=== PATIENT | female | born 1950 | race Caucasian/White ===

== ENCOUNTER 2017-02-04 19:55 | Observation (INO) | payer MEDICARE, OTHER ==
[2017-02-04 20:25] LABS: Hematocrit 45.9 % (37.0-47.0); Hemoglobin 15.6 gm/dL (12.5-16.0); Mean Corpuscular Hemoglobin 30.2 pg (27-31); Mean Platelet Volume 9.2 fl (6.0-9.5); Neutrophil # 7.7 K/mm3 (1.3-6.0); Neutrophil % 57.9 % (42-75.0); Platelet Count 311 K/mm3 (150-450); Red Blood Count 5.16 M/mm3 (4.2-5.4); Red Cell Distribution Width 12.2 % (11.5-14.0); White Blood Count 13.3 K/mm3 (4.0-10.5)
--- OUTSIDE RECORDS SUMMARY | 2017-02-04 20:31 | XMS REPORT | Continuity of Care Document ---
:1950 Author Organization [facility] ([facility]) Address [address] [place] [address] Phone [phone] Care Team Providers Name Role Phone Maria G Garcia Primary Care Provider [phone] Source Comments This disclosure is being made pursuant to the Care Everywhere program, applicable federal and state laws, and may not contain all informaitonavailable regarding this patient.[facility] ([facility]) Active Allergies and Adverse Reactions Not on File Current Medications Not on file Active Problems Not on file Most Recent Encounters Date Type Specialty Providers Description 01/31/2017 Orders/Notes Srg Vascular Tim Ruffin GNP Dx: Bilateral carotid artery stenosis (Primary Dx) Social History Tobacco Use Types Packs/Day Years Used Date Never Assessed Plan of Care Date Type Specialty Providers Description 02/06/2017 Hospital Encounter Radiology Chief Comp: Patient Reported Reason For Visit 02/06/2017 Hospital Encounter [facility] V[facility], Chief Comp: Patient MD Lidia Reported Reason For [address] [place] [address] [phone] (Fax) 02/06/2017 Appointment Srg Vascular [facility], Dx: Occlusion and MD Lidia stenosis of carotid [address] artery without [place], [place] mention of cerebral [id number] infarction (Primary [id number] Dx) [phone] (Fax) Health Maintenance Due Date Last Done Comments HCV Screening 1950 Hepatitis B Vaccine (1 of 3 - Primary Series) 1950 Tdap Vaccine 1961 Lipid Disorder Screening 1968 Td Vaccine 1968 Mammogram 1990 Colonoscopy 05/25/2000 Zoster Vaccine 2010 Osteoporosis Screening (DXA Bone Density) 2015 Pneumococcal Vaccine (1 of 2 - PCV13) 2015 Influenza Vaccine: Seasonal (Season Ended) 2017 Results from Last 3 Months Not on file
[2017-02-04 20:48] LABS: Albumin * 3.5 gm/dl (3.4-5.0); Anion Gap 12.6 mmol/L (6.8-13.8); BUN/Creatinine Ratio 23.6 (9.0-21.6); Bilirubin, Total 0.4 mg/dL (0.0-1.1); Ca. Corrected For Albumin 9.9 mg/dL (8.4-10.2); Calcium * 9.8 mg/dL (7.9-10.9); Potassium 3.6 mmol/L (3.4-4.6)
--- NOTE | 2017-02-04 21:43 | ERNOTE ---
Medical Problem HPI - General Chief Complaint: General Assessment Time Seen by Provider: 02/04/17 20:12 Source: patient, family Exam Limitations: no limitations - Immun/Allergies/Home Medications Allergies/Adverse Reactions: Allergies shrimp Allergy (Verified 02/04/17 20:22) Home Medications: HOME MEDICATIONS Aspirin 81 mg PO 02/04/17 [Last Taken Unknown] Atorvastatin Calcium [Lipitor] 40 mg PO DAILY 02/04/17 [Last Taken Unknown] Lisinopril/Hydrochlorothiazide [Zestoretic 10-12.5 mg Tablet] 1 each PO DAILY [Last Taken Unknown] [place]-3 Fatty Acids/Fish Oil [Fish Oil 1,000 mg Capsule] 1 each PO DAILY [Last Taken Unknown] Vitamin B12 02/04/17 [Last Taken Unknown] Vitamin D3 02/04/17 [Last Taken Unknown] Zostavax Vial 02/04/17 [Last Taken Unknown] - History of Present History Narrative: pt here for one episode of tipping to the left side at dinner approx 30 minutes prior to presentation to ED. No LOC, no fall. Son in law caught the patient. Pt states that she also feels very weak all over and hasn't felt well all day. Denies any headache or dizziness right now. Review of Systems - Review of Systems Constitutional: Present: weakness, fatigue, malaise EYE: Present: no symptoms reported ENT: Present: no symptoms reported Respiratory: Present: no symptoms reported Cardiology: Present: no symptoms reported Gastrointestinal/Abdominal: Present: no symptoms reported Genitourinary: Present: no symptoms reported Musculoskeletal: Present: other - weak telesales advisor on left side but pt states it is not new Skin: Present: no symptoms reported Neurological: Present: weakness, other - no focal neurological deficits. normal gait, and speech however she is approximately one inch off when she tries to touch my index finger with her right hand. Pt states and daughters agree that this is new. - Patient's Past Medical History Patient History - Medical: Anemia Patient History - Cardiac/Respiratory: Hypertension, Hyperlipidemia Patient History - Cancer: No Hx of Cancer Patient History - Other: None - Social History Living Situations: home Abuse History: No History of abuse Psych History: No pertinent hx Alcohol Use: none Drug Use: none Physical Exam - Physical Exam General Appearance: Present: wd/wn, alert, no apparent distress Ears, Nose, Throat: Present: normal ENT inspection, normal pharynx Respiratory: Present: no respiratory distress, normal breath sounds, no accessory muscle use, chest nontender, lungs clear Gastrointestinal/Abdominal: Present: normal bowel sounds, nontender, nondistended, soft, no organomegaly Extremity Exam: Present: normal inspection, non-tender, normal range of motion, no edema Neurological Exam: Present: alert, oriented, normal mood/affect, no motor/ sensory deficits, other - finger to nose/finger is off when pt uses right hand ED Progress - Results and Orders Patient's Lab Results:: I have reviewed the patient's lab results. - Vital Signs Patient's Vital Signs:: I have reviewed the patient's vital signs. Vital Signs: Vital Signs 02/04/17 02/04/17 19:56 20:47 Temperature 36.9 C Pulse Rate 95 89 Respiratory 16 17 Rate Blood Pressure 185/72 158/51 O2 Sat by Pulse 100 95 Oximetry - Progress/Reassessment Chief Complaint: General Assessment Plan - Plan Plan: This patient feels weak and her dexterity is not "normal" as reported by her. she had an episode of tipping over to the left but that and her balance is now gone and within normal limits. Ct of head is negative, WBC is 13. No focus of infection has been found. I think pt needs to be admitted for observation and hospitalist was called for admit Departure - Departure Clinical Impression: TIA (transient ischemic attack) Qualifiers: Transient cerebral ischemia type: other Qualified Code(s): G45.8 - Other transient cerebral ischemic attacks and related syndromes Disposition: [facility] Condition: Stable Referrals: Maria G Garcia FNP [Primary Care Provider] -
--- OUTSIDE RECORDS SUMMARY | 2017-02-04 21:49 | XMS REPORT | Continuity of Care Document ---
:1950 Author Organization [facility] ([facility]) Address [address] [place] [address] Phone [phone] Care Team Providers Name Role Phone Maria G Garcia Primary Care Provider [phone] Source Comments This disclosure is being made pursuant to the Care Everywhere program, applicable federal and state laws, and may not contain all informaitonavailable regarding this patient.[facility] ([facility]) Active Allergies and Adverse Reactions Not on [...] Reported Reason For [address] [place] [address] [phone] (Fax) 02/06/2017 Appointment Srg Vascular [facility], Dx: Occlusion and MD Lidia stenosis of carotid [address] artery without [place], [place] mention of cerebral [address] infarction (Primary [phone] Dx) [phone] (Fax) Health Maintenance Due Date Last Done [...]
[2017-02-04 22:33] LABS: Urine Bilirubin Negative (NEGATIVE); Urine Ketone Negative (NEGATIVE); Urine Nitrite Negative (NEGATIVE); Urine Protein Negative (NEGATIVE); Urine Specific Gravity 1.025 SP.GR. (1.005-1.010); Urine Urobilinogen Normal (NORMAL)
--- NOTE | 2017-02-04 22:37 | HP ---
Chief Complaint - Chief Complaint Date of Service: 02/04/17 Time of Service: 22:12 Chief Complaint: " Weakness". Source of HPI- Pt; reliable, ER provider report. History of Present Illness: Ms. Frye is a 66-yr-old [place] pt of [facility] with a PMH of: Athritis, Cellulitis, HTN & HLD. History is mostly provided by the pt's two sisters. They report that while pt was eating a dessert tonight, she suddenly became weak & tilted to the LT side. There was no loss of consciousness or fall. Pt states that she felt lightheaded during the episode. The sisters deny the associated symptoms of: difficulty with speech/slurry speech, facial drooping, numbness, one sided weakness or changes in vision. They noted that she kept missing to apply cap on the water bottle today. Pt states she has prior injury to the Left Hand since childhood and it has always been weak. Off note, saw her PCP on 01/25 with complaints of Lt hand numbness, tremors on RT hand and blurry vision which lasted 30 minutes. She was found to have a LT carotid bruit. She had a follow-up for a Carotid Ultrasound on 01/30. The imaging showed complete occlusion of the RT common Carotid & RT internal Carotid Arteries, and near total occlusion of the LT internal and LT External Carotid Arteries. Her PCP made a referral to the Vascular Surgeon and pt has an upcoming appointment on 02/06 at 1.00pm. She is on Aspirin and Statin therapy. She still smokes cigarettes and is a 40 yr 1 PPD smoker. During evaluation at the ED, the Hematology and Chemistry labs were mostly unremarkable. A Head CT was obtained and there was no obvious CVA/infarcts. UA was negative of infection. The EKG and Troponin was normal. Pt will be admitted under observation status due to symptoms of TIA which also has a risk to evolve to an Acute Stroke - Patient's Past Medical History Patient History - Medical: Anemia, Arthritis, Other - Cellulitis. Patient History - Cardiac/Respiratory: Hypertension, Hyperlipidemia Patient History - Cancer: No Hx of Cancer Patient History - Surgical Procedures: Total Knee Replacement - LEFT, Other - oophorectomy Patient History - Other: None - Family History Father Family History - Medical: , Diabetes Type 2 Family History - Cardiac/Respiratory: CVA/Stroke, Hypertension Mother Family History - Medical: Alzheimer's Disease, Arthritis - Social History Living Situations: home Abuse History: No History of abuse Psych History: No pertinent hx Alcohol Use: none Drug Use: none - Immunizations Immunizations Up to Date: Yes Hx Pneumococcal Vaccination: Yes History of Influenza Vaccine: Yes Review Of Systems (GEN) - Review of Systems Generalized/Overall Review: Present: Weakness. Absent: Chills, Fever, Malaise EENTM: Absent: Eye Pain, Blurred Vision Allergies/Adverse Reactions: Allergies Allergy/AdvReac Type Severity Reaction Status Date / Time shrimp Allergy Verified 02/04/17 20:22 Home Medications: HOME MEDICATIONS Aspirin 81 mg PO DAILY 02/04/17 [Last Taken 02/04/17 12:00] Atorvastatin Calcium [Lipitor] 40 mg PO DAILY 02/04/17 [Last Taken 02/04/17 12: 00] Lisinopril/Hydrochlorothiazide [Zestoretic 10-12.5 mg Tablet] 1 each PO DAILY [Last Taken 02/04/17 12:00] [place]-3 Fatty Acids/Fish Oil [Fish Oil 1,000 mg Capsule] 1 each PO DAILY [Last Taken 01/27/17] Acetaminophen/Diphenhydramine [Tylenol Pm Ex-Strength Caplet] 2 each PO HS PRN 02/05/17 [Last Taken Unknown] Cholecalciferol (Vitamin D3) [Vitamin D3] 1,000 unit PO DAILY 02/05/17 [Last Taken Unknown] Cyanocobalamin (Vitamin B-12) [Vitamin B-12] 500 mcg PO DAILY 02/05/17 [Last Taken Unknown] Folic Acid 0.4 mg PO DAILY 02/05/17 [Last Taken Unknown] Multivitamin [Multivitamins] 1 each PO DAILY 02/05/17 [Last Taken Unknown] Exam - Exam Vital Signs: Vital Signs - Last Taken Temp 36.9 C 02/04/17 19:56 Pulse 89 02/04/17 20:47 Resp 17 02/04/17 20:47 BP 158/51 02/04/17 20:47 Pulse Ox 95 02/04/17 20:47 Constitutional: Present: Alert, Oriented x3, No distress ENT Exam: Present: normal ENT inspection, hearing grossly normal. Absent: hard of hearing, nasal congestion Eye Exam: bilateral eye: normal inspection, PERRL Neck: Present: full range of motion, supple, normal inspection Back Exam: Present: normal inspection, no CVA tenderness Breasts: Present: Exam deferred Respiratory: Present: lungs clear, no accessory muscle use Cardiovascular/Chest: Present: normal peripheral pulses, regular rate, rhythm, no chest tenderness, no murmur Abdomen: Present: Normal bowel sounds, soft, nontender /Rectal: Present: Exam deferred Extremity: Present: normal range of motion, non-tender, normal inspection, no pedal edema Skin Exam: Present: no cyanosis, pallor Neurologic: Present: alert, normal mood/affect, oriented x 3, motor weakness - Muscle Stregth on RUE 4/5 & LUE 3/5.. Absent: abnormal gait, aphasia, facial droop Appearance: Present: appropriate appearance, appropriate insight Eye contact: Present: cooperative, good eye contact, normal speech Thoughts: Present: normal thought pattern, no apparent hallucination Diagnostic Studies: Laboratory Results WBC 13.3 K/mm3 (4.0-10.5) H 02/04/17 20:20 RBC 5.16 M/mm3 (4.2-5.4) 02/04/17 20:20 Hgb 15.6 gm/dL (12.5-16.0) 02/04/17 20:20 Hct 45.9 % (37.0-47.0) 02/04/17 20:20 MCV 89.0 fl (78-100) 02/04/17 20:20 MCH 30.2 pg (27-31) 02/04/17 20:20 MCHC 34.0 g/dl (32-36) 02/04/17 20:20 RDW 12.2 % (11.5-14.0) 02/04/17 20:20 Plt Count 311 K/mm3 (150-450) 02/04/17 20:20 MPV 9.2 fl (6.0-9.5) 02/04/17 20:20 Immature Gran % (Auto) 0.40 % (0.001-0.429) 02/04/17 20:20 Immature Gran # (Auto) 0.05 K/mm3 (0.000-0.0310) H 02/04/17 20:20 Neutrophils % 57.9 % (42-75.0) 02/04/17 20:20 Lymphocytes % 33.5 % (20-51) 02/04/17 20:20 Monocytes % 5.4 % (0.0-9) 02/04/17 20:20 Eosinophils % 2.3 % (0.0-3.0) 02/04/17 20:20 Basophils % 0.5 % (0.0-1.0) 02/04/17 20:20 Nucleated RBC % 0.0 k/mm3 (0-1) 02/04/17 20:20 Neutrophils # 7.7 K/mm3 (1.3-6.0) H 02/04/17 20:20 Lymphocytes # 4.4 k/mm3 (1.5-3.5) H 02/04/17 20:20 Monocytes # 0.7 k/mm3 (0.0-1.0) 02/04/17 20:20 Eosinophils # 0.3 k/mm3 (0.0-0.7) 02/04/17 20:20 Absolute Basophils 0.1 k/mm3 (0.0-0.1) 02/04/17 20:20 Sodium 140 mmol/L (132-142) 02/04/17 20:20 Plasma Sodium 140 mmol/L (130-142) 02/04/17 20:20 Potassium 3.6 mmol/L (3.4-4.6) 02/04/17 20:20 Chloride 101 mmol/L (97-106) 02/04/17 20:20 Carbon Dioxide 30.0 mmol/L (24-32.6) 02/04/17 20:20 Anion Gap 12.6 mmol/L (6.8-13.8) 02/04/17 20:20 BUN 21 mg/dL (3-23) 02/04/17 20:20 Creatinine 0.89 mg/dL (0.4-1.4) 02/04/17 20:20 Est GFR (Non-Af Amer) 67 mL/min (60-130) 02/04/17 20:20 BUN/Creatinine Ratio 23.6 (9.0-21.6) H 02/04/17 20:20 Random Glucose 129 mg/dL (70-110) H 02/04/17 20:20 Calcium 9.8 mg/dL (7.9-10.9) 02/04/17 20:20 Calcium Adj for Albumin 9.9 mg/dL (8.4-10.2) 02/04/17 20:20 Total Bilirubin 0.4 mg/dL (0.0-1.1) 02/04/17 20:20 AST 22 U/L (0-48) 02/04/17 20:20 ALT 31 U/L (19-67) 02/04/17 20:20 Alkaline Phosphatase 80 U/L (50-170) 02/04/17 20:20 Total Protein 8.0 gm/dL (6.2-8.2) 02/04/17 20:20 Albumin 3.5 gm/dl (3.4-5.0) 02/04/17 20:20 Assessment/Plan - Assessment/Plan (1) TIA (transient ischemic attack) Assessment: Pt /family reported abrupt weakness & loss of balance. No vision, speech, & contralateral sensory or motor dysfunction. The head CT was negative for an infarct. The EKG showed no arrhythmia involved and the Troponin was negative.Her TIA symptoms are likely related to Carotid Atherosclerosis vs cerebral embolism & cardioembolic. Will admit and place telemetry monitoring and perform neuro checks to ensure TIA does not progress to an Acute stroke. She is on Statin and Aspirin but will stop Aspirin and start Plavix 75mg daily due to carotid artery stenosis. Problem: Acute Qualifiers: Transient cerebral ischemia type: other Qualified Code(s): G45.8 - Other transient cerebral ischemic attacks and related syndromes (2) Carotid artery stenosis Assessment: Was on Aspirin and Statin therapy which was started recently12/26. May need carotid revasculization within 2 weeks of TIA. She has an appt with the Vascular surgeon this Tuesday 02/06 at 1.00pm. Will plan to Discharge tomorrow if no acute events overnight so that she can make it to that appt. Problem: Acute (3) HTN (hypertension) Assessment: Stable -On Lisinopril Problem: Chronic Qualifiers: Hypertension type: essential hypertension Qualified Code(s): I10 - Essential (primary) hypertension (4) HLD (hyperlipidemia) Assessment: Stable- On Zocor. Problem: Chronic
[2017-02-04 22:44] LABS: Urine Appearance Clear; Urine Bacteria TRACE; Urine Blood 10 /ul (NEGATIVE); Urine Color Yellow; Urine RBC None Seen /hpf (0-5); Urine WBC None Seen /hpf (0-5)
[2017-02-04 22:58] VITALS: BP 157/76
--- NOTE | 2017-02-05 07:11 | DS ---
(1) TIA (transient ischemic attack) Problem: Acute Qualifiers: Transient cerebral ischemia type: other Qualified Code(s): G45.8 - Other transient cerebral ischemic attacks and related syndromes (2) Carotid artery stenosis Problem: Acute (3) HTN (hypertension) Problem: Chronic Qualifiers: Hypertension type: essential hypertension Qualified Code(s): I10 - Essential (primary) hypertension (4) HLD (hyperlipidemia) Problem: Chronic Description of Stay: Admission HPI Ms. Frye is a 66-yr-old [place] pt of [facility] with a PMH of: Athritis, Cellulitis, HTN & HLD. History is mostly provided by the pt's two sisters. They report that while pt was eating a dessert tonight, she suddenly became weak & tilted to the LT side. There was no loss of consciousness or fall. Pt states that she felt lightheaded during the episode. The sisters deny the associated symptoms of: difficulty with speech/slurry speech, facial drooping, numbness, one sided weakness or changes in vision. They noted that she kept missing to apply cap on the water bottle today. Pt states she has prior injury to the Left Hand since childhood and it has always been weak. Off note, saw her PCP on 01/25 with complaints of Lt hand numbness, tremors on RT hand and blurry vision which lasted 30 minutes. She was found to have a LT carotid bruit. She had a follow-up for a Carotid Ultrasound on 01/30. The imaging showed complete occlusion of the RT common Carotid & RT internal Carotid Arteries, and near total occlusion of the LT internal and LT External Carotid Arteries. Her PCP made a referral to the Vascular Surgeon and pt has an upcoming appointment on 02/06 at 1.00pm. She is on Aspirin and Statin therapy. She still smokes cigarettes and is a 40 yr 1 PPD smoker. During evaluation at the ED, the Hematology and Chemistry labs were mostly unremarkable. A Head CT was obtained and there was no obvious CVA/infarcts. UA was negative of infection. The EKG and Troponin was normal. Pt will be admitted under observation status due to symptoms of TIA which also has a risk to evolve to an Acute Stroke. Hospital course Problem. 1.) TIA. On admission, pt /family reported abrupt weakness & loss of balance. No vision, speech, & contralateral sensory or motor dysfunction. The head CT was negative for an infarct. The EKG showed no arrhythmia involved and the Troponin was negative. Her TIA symptoms were likely related to Carotid Atherosclerosis vs cerebral embolism & cardioembolic. She was admitted under observation for remote telemetry monitoring and for neuro checks due to the risk of TIA that can progress to Acute Stroke. During the overnight stay, the were no acute events involving unilateral weakness, speech, vision and facial dropping . She was on Aspirin, Statin and Micky inhibitor prior to hospitalization. Her Aspirin was stopped and she was started on Plavix given the just recently discovered Carotid Artery Stenosis and presentation of TIA symptoms. She was in a stable condition to be discharged. She was strongly advised to keep the appointment with the Vascular Surgeon in [place] on 02/06. Procedures Performed: none Discharge Disposition: Home self care Disposition: Home self-care Condition: Good Discharge Activity: Activity as tolerated Discharge Diet: General/regular food, Low salt Referrals: Maria G Garcia FNP [Primary Care Provider] - Problem Oriented Discharge Instructions to Patient/Family: Smoking Cessation, Tips for Success, [id number], Carotid Artery Disease, Transient Ischemic Attack, [id number] Additional Patient Instructions (free text): Follow-up with your Primary Care Doctor next week. Please keep your appointment with the Vascular Surgeon tomorrow at the [facility]. Prescriptions (Any new or edited meds): Clopidogrel Bisulfate [Plavix] 75 mg PO DAILY #60 tablet Complete Home Medications List: Complete Home Medication List: Atorvastatin Calcium [Lipitor] 40 mg PO DAILY 02/04/17 Lisinopril/Hydrochlorothiazide [Zestoretic 10-12.5 mg Tablet] 1 each PO DAILY [place]-3 Fatty Acids/Fish Oil [Fish Oil 1,000 mg Capsule] 1 each PO DAILY Acetaminophen/Diphenhydramine [Tylenol Pm Ex-Strength Caplet] 2 each PO HS PRN 02/05/17 Cholecalciferol (Vitamin D3) [Vitamin D3] 1,000 unit PO DAILY 02/05/17 Clopidogrel Bisulfate [Plavix] 75 mg PO DAILY #60 tablet 02/05/17 Cyanocobalamin (Vitamin B-12) [Vitamin B-12] 500 mcg PO DAILY 02/05/17 Folic Acid 0.4 mg PO DAILY 02/05/17 Multivitamin [Multivitamins] 1 each PO DAILY 02/05/17
[2017-02-05] MEDS ORDERED: HYDROCHLOROTHIAZIDE 12.5 MG CAPSULE PO SCH (09:00)
[2017-02-05] MEDS ORDERED: ATORVASTATIN CALCIUM 40 MG TABLET PO SCH (09:00)
[2017-02-05] MEDS ORDERED: CYANOCOBALAMIN 1,000 MCG TABLET PO SCH (09:00)
[2017-02-05] MEDS ORDERED: LISINOPRIL 10 MG TABLET PO SCH (09:00)
[2017-02-05] MEDS ORDERED: ROSUVASTATIN CALCIUM 10 MG TABLET PO SCH (09:00)
[2017-02-05] MEDS ORDERED: CLOPIDOGREL BISULFATE 75 MG TABLET PO SCH (09:00)
[2017-02-05] MEDS ORDERED: CHOLECALCIFEROL 1,000 UNIT CAPSULE PO SCH (09:00)
[2017-02-05] MEDS ORDERED: ASPIRIN 81 MG TAB.CHEW PO SCH (09:00)
== END 2017-02-05 08:39 | disposition home or self-care (01) ==
LOC: ER 19:55 → MS 21:39
PROVIDERS: ADMIT Nurse Practitioner; ATTEND Internal Medicine
DX: G45.8 Other transient cerebral ischemic attacks and related syndromes (principal); I65.23 Occlusion and stenosis of bilateral carotid arteries; I10 Essential (primary) hypertension; Z72.0 Tobacco use; E78.5 Hyperlipidemia, unspecified
CPT/HCPCS: 36415; 70450; 80053; 81001; 84484; 85025; 93005; 99284; G0378

== ENCOUNTER 2017-02-16 20:20 | Emergency (ER) | payer MEDICARE, OTHER ==
--- OUTSIDE RECORDS SUMMARY | 2017-02-16 21:01 | XMS REPORT | Continuity of Care Document ---
:1950 Author Organization [facility] ([facility]) Address [address] [place] [address] Phone [phone] Care Team Providers Name Role Phone Maria G Garcia Primary Care Provider [phone] Source Comments This disclosure is being made pursuant to the Care Everywhere program, applicable federal and state laws, and may not contain all informaitonavailable regarding this patient.[facility] ([facility]) Active Allergies and Adverse Reactions Allergen Noted Date Severity Reactions Comments Shellfish Containing Products 02/06/2017 Urticaria (Hives) Current Medications Prescription Sig. Disp. Refills Start Date End Date Status atorvastatin 40 mg Take 40 mg by 12/26/2016 Active tablet mouth daily. lisinopril-hydrochlor Take 1 tablet 01/18/2017 Active othiazide 10-12.5 mg by mouth per tablet daily. clopidogrel 75 mg Take 75 mg by 02/05/2017 Active tablet mouth daily. multivitamin tablet Take 1 tablet Active by mouth daily. cholecalciferol Take 1,000 Active (VITAMIN D3) 1,000 Units by unit capsule mouth daily. aspirin 81 mg EC Take 81 mg by Active tablet mouth daily. cyanocobalamin Take 1 tablet Active (VITAMIN B-12) PO by mouth daily. DOCOSAHEXANOIC Take 1 Active ACID/EPA (FISH OIL capsule by PO) mouth daily. docusate 100 mg Take 1 60 capsule 0 02/16/2017 Active capsule capsule (100 mg total) by mouth 2 times daily. HYDROcodone-acetamino Take 1-2 40 tablet 0 02/16/2017 Active phen 5-325 mg per tablets by tablet mouth every 4 hours as needed. vitamin B complex Take 1 tablet Discontinued tablet by mouth 7 daily. omega-3 fatty acids 1 Take 2 g by Discontinued gram capsule mouth daily. 7 cyanocobalamin Take 1,200 Discontinued (VITAMIN B-12) PO mcg by mouth 7 daily. HYDROcodone-acetamino Take 1-2 40 tablet 0 02/16/2017 Discontinued phen 5-325 mg per tablets by 7 tablet mouth every 4 hours as needed. Active Problems Problem Noted Date PONV (postoperative nausea and vomiting) 02/15/2017 Occlusion and stenosis of carotid artery without mention of cerebral 2016 infarction Tobacco use disorder 02/08/2017 Essential hypertension 02/08/2017 Carotid stenosis, left 02/08/2017 Carotid occlusion, right 02/08/2017 Stroke, large vessel 02/08/2017 Peripheral vascular disease 02/06/2017 Overview: Vascular History: Risk Factors: history of smoking and hypercholesterolemia Vascular Procedures: none Cardiac History: None Statin Therapy: Yes Antithrombotic Therapy: clopidogrel Indication: started February 04, 2017 possible TIA Carotid Screening: ~ February 06, 2017 Right ICA 100%; Left ICA 80-99%, Verts antegrade Aortic Screening:No aneurysm on duplex February 06, 2017 Most Recent Encounters Date Type Specialty Providers Description 02/16/2017 Hospital Encounter Kimberly, Chief Comp: Patient Vascular MD Lidia Reported Reason For Visit 02/16/2017 Hospital Encounter Kimberly Dx: Postoperative Vascular MD Lidia carotid endarterectomy mandie Osuna Timothy F, MD encounter for 02/16/2017 Telephone Patient Services Yun Harris Chief Comp: Post-op Kyle RN Problem 02/15/2017 Hospital Encounter Neurology Vane Dang, Chief Comp: Patient MD Reported Reason For Axel, Visit MD Lidia 02/15/2017 - Hospital Encounter Intensive Care Axel Dx: Occlusion and 02/16/2017 Inpatient - Adult MD Lidia stenosis of carotid artery without mention of cerebral infarction (Primary Dx) 02/15/2017 Surgery General Surgery Axel, Left carotid MD Lidia endarterectomy 02/10/2017 Telephone Heart and Radha Ruffin Chief Comp: Results Vascular RN 02/07/2017 Office Visit Escobar Mason: Preop Vascular Li Payne MD cardiovascular exam (Primary Dx) 02/07/2017 Anesthesia Event General Surgery Chanel Johnson RN 02/06/2017 Hospital Encounter Radiology Irena, Dx: Occlusion and MD Lorenzo stenosis of carotid artery without mention of cerebral infarction 02/06/2017 Office Visit Neurology Love Ham Dx: Cerebrovascular MD Kyle accident (CVA), unspecified mechanism (Primary Dx) 02/06/2017 Hospital Encounter Heart and Axel Chief Comp: Patient Vascular MD Lidia Reported Reason For Visit 02/06/2017 Hospital Encounter Heart and Axel Chief Comp: Patient Vascular MD Lidia Reported Reason For Visit 02/06/2017 Hospital Encounter Heart and Axel Chief Comp: Patient Vascular MD Lidia Reported Reason For Visit 02/06/2017 Hospital Encounter Heart and Axel Chief Comp: Patient Vascular MD Lidia Reported Reason For Visit 02/06/2017 Hospital Encounter Heart and Axel Chief Comp: Patient Vascular MD Lidia Reported Reason For Visit 02/06/2017 Office Visit Srg Vascular Axel, Dx: Occlusion and MD Lidia stenosis of carotid artery without mention of cerebral infarction (Primary Dx) 02/06/2017 Hospital Encounter Radiology Adolfo Jennings Dx: Encounter for MD Erica preprocedural laboratory examination (Primary Dx) 02/06/2017 Telephone Neurology Love Ham Chief Comp: Results MD Kyle 01/31/2017 Orders/Notes Srg Vascular Tim Ruffin GNP Dx: Bilateral carotid artery stenosis (Primary Dx) Social History Tobacco Use Types Packs/Day Years Used Date Current Every Day Smoker 0.5 40 Smokeless Tobacco: Never Used Tobacco Cessation:Counseling Given: Yes Comments: Alcohol Use Drinks/Week oz/Week Comments No Last Filed Vital Signs Vital Sign Reading Time Taken Blood Pressure 137/56 02/16/2017 11:56 AM CDT Pulse 86 02/15/2017 9:25 AM CDT Temperature 36 C (96.8 F) 02/16/2017 12:00 PM CDT Respiratory Rate 18 02/15/2017 9:25 AM CDT Height 1.702 m (5' 7") 02/15/2017 5:30 PM CDT Weight 73.2 kg (161 lb 6 oz) 02/15/2017 5:30 PM CDT Body Mass Index 25.27 02/15/2017 5:30 PM CDT Oxygen Saturation 91% 02/16/2017 12:00 PM CDT Plan of Care Date Type Specialty Providers Description 03/20/2017 Appointment Heart and Vascular Default, Other Billg Chief Comp: Patient - Defo Reported Reason For [address] [place] [address] [phone] (Fax) 03/20/2017 Appointment Srg Vascular Default, Other Billg - Defo [address] [place] [address] [phone] (Fax) Chief Comp: Patient Lidia Reyna MD [address] [place] [address] [phone] (Fax) Reported Reason For Visit Health Maintenance Due Date Last Done Comments HCV Screening 1950 Hepatitis B Vaccine (1 of 3 - Primary Series) 1950 Tdap Vaccine 1961 Lipid Disorder Screening 1968 Td Vaccine 1968 Mammogram 1990 Colonoscopy 05/25/2000 Zoster Vaccine 2010 Osteoporosis Screening (DXA Bone Density) 2015 Pneumococcal Vaccine (1 of 2 - PCV13) 2015 Influenza Vaccine: Seasonal (Season Ended) 2017 Procedures from Last 3 Months Procedure Name Priority Date/Time Associated Comments Diagnosis ABSTRACTED BY Routine 02/15/2017 9:33 PM Occlusion and Results for this BILLING STAFF CDT stenosis of carotid procedure are in artery without the results mention of cerebral section. infarction Results from Last 3 Months VASC CAROTID DUPLEX SCAN (UNILATERAL) (02/16/2017 10:42 AM) Component Value Range [facility] VASC LEFT CCA PROX PSV 76 cm/sec [facility] VASC LEFT CCA PROX PEDV 20 cm/sec [facility] VASC LEFT CCA DIST PSV 66 cm/sec [facility] VASC LEFT CCA DIST PEDV 19 cm/sec [facility] VASC LEFT ICA PROX PSV 179 cm/sec [facility] VASC LEFT ICA PROX PEDV 50 cm/sec [facility] VASC LEFT ICA DIST PSV 144 cm/sec [facility] VASC LEFT ICA DIST PEDV 51 cm/sec [facility] VASC LEFT ECA PSV 165 cm/sec [facility] VASC LEFT ECA PEDV 42 cm/sec [facility] VASC LEFT VERTEBRAL PSV 69 cm/sec [facility] VASC LEFT VERTEBRAL PEDV 15 cm/sec [facility] VASC LEFT ICA/CCA 2.70 PHOSPHORUS (02/16/2017 3:15 AM)Only the most recent of2 resultswithin the time period is included. Component Value Range Phosphorus 3.1Comment:New reference range installed 07/14/15. 2.5-4.5 mg/dL Specimen Blood MAGNESIUM (02/16/2017 3:15 AM)Only the most recent of2 resultswithin the time period is included. Component Value Range Magnesium 2.3 1.5-2.9 mg/dL Specimen Blood CHEM 7 PANEL (02/16/2017 3:15 AM) Component Value Range Sodium 139 135-145 mEq/L Chloride 102 95-107 mEq/L Potassium 4.7 3.5-5.0 mEq/L CO2 23 22-29 mEq/L BUN 18 10-20 mg/dL Creatinine 0.7Comment: 0.5-1.0 mg/dL Creatinine switched to enzymatic method on 02/08/2011.GFR equation switched to IDMS-traceable MDRD equation on 02/08/2011. Calculated GFR values are not valid in clinical settings where serum creatinine is changing. Glucose 132(H)Comment: 65-99 mg/dL The Expert Committee on the Diagnosis and Classification of Diabetes has defined impaired fasting glucose as greater than or equal to 100 mg/dL but less than 126 mg/dL.(Diabetes Care 28 (Suppl 1)S41,2005) Anion Gap 14 <17 mEq/L Calculated GFR 84 >60 mL/min/1.73 m2 Specimen Blood CBC (COMPLETE BLOOD COUNT) (02/16/2017 3:15 AM)Only the most recent of3 resultswithin the time period is included. Component Value Range WBC Count 17.4(H) 3.7-10.5 K/MM3 RBC Count 4.47 4.00-5.20 M/MM3 Hemoglobin 13.2 11.9-15.5 g/dL Hematocrit 39 35-47 % MCV (Mean Corpuscular Volume) 88 82-99 FL MCH (Mean Corpuscular Hemoglobin) 30 25-35 PG MCHC (Mean Corpuscular Hemoglobin Concentration) 34 32-36 % Platelet Count 298 150-400 K/MM3 MPV (Mean Platelet Volume) 9.1(L) 9.4-12.3 FL RBC Dist Width-STD 38.9 36.4-46.3 FL RBC Distrib Width 12.0 9.0-14.5 % Nucleated RBC 0 /100 WBC Specimen Whole Blood VASC OR CASE (02/15/2017 9:33 PM) Narrative Lidia Reyna MD 02/15/20179:33 PM OR CASE: Left CEA Post-Op Procedure Note - Vascular Surgery Date: 02/15/17 Service: Surgery-Vascular Location: MAIN OR Preoperative Diagnosis: * Occlusion and stenosis of carotid artery without mention of cerebral infarction [I65.29] * 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] Operation/Procedure: Left carotid endarterectomy Postoperative Diagnosis: * Occlusion and stenosis of carotid artery without mention of cerebral infarction [I65.29] * 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 Post-Op Plan: Drains: Left neck FLEX Antibiotics: Prophylactic Anticoagulation: ASA, Plavix Post Op Studies/Consults: Left carotid duplex tomorrow Intended Discharge: Unknown Intended Outpatient Follow-Up: One Month Intended Outpatient Studies: Carotid duplex Other: Not Applicable BASIC METABOLIC PANEL W/ CALCIUM (CHEM 8) (02/15/2017 3:58 PM) Component Value Range Sodium 141 135-145 mEq/L Potassium 4.0 3.5-5.0 mEq/L Chloride 104 95-107 mEq/L CO2 23 22-29 mEq/L BUN 19 10-20 mg/dL Creatinine 0.7Comment: 0.5-1.0 mg/dL Creatinine switched to enzymatic method on 02/08/2011.GFR equation switched to IDMS-traceable MDRD equation on 02/08/2011. Calculated GFR values are not valid in clinical settings where serum creatinine is changing. Glucose 159(H)Comment: 65-99 mg/dL The Expert Committee on the Diagnosis and Classification of Diabetes has defined impaired fasting glucose as greater than or equal to 100 mg/dL but less than 126 mg/dL.(Diabetes Care 28 (Suppl 1)S41,2005) Calcium 8.5 8.5-10.5 mg/dL Anion Gap 14 <17 mEq/L Calculated GFR 84 >60 mL/min/1.73 m2 Specimen Blood ECG - EKG 12 LEAD (02/15/2017 3:55 PM)Only the most recent of2 resultswithin the time period is included. Component Value Range ECG SEVERITY - NORMAL ECG - VENT. RATE 74 bpm RR 811 ms P-R INTERVAL 168 ms QRSD INTERVAL 90 ms QT INTERVAL 408 ms QTC INTERVAL 453 ms P AXIS 72 degrees QRS AXIS 41 degrees T WAVE AXIS 63 degrees REPORT SINUS RHYTHM [Now Present] SIGNIFICANT RHYTHM CHANGES [Now Absent] SINUS TACHYCARDIA Otherwise no significant change Interpreting Physician: MILES DORSEY MD RED BLOOD CELLS DISPENSE FROM BLOOD BANK (02/15/2017 2:52 PM) Component Value Range Blood Coding System [id number] Blood Product Volume 325 Blood Product ABORH A Neg Blood Unit Number [id number] BLOOD DISPENSE STATUS RET Blood Product Type Red Blood Cells Blood Product Code [id number] Blood Coding System [id number] Blood Product Volume 325 Blood Product ABORH A Neg Blood Unit Number [id number] BLOOD DISPENSE STATUS RET Blood Product Type Red Blood Cells Blood Product Code T5505O22 ACTIVATED CLOTTING TIME - OR (02/15/2017 2:01 PM) Component Value Range ACT (Activated Clotting Time) - OR 204(H) 74-137 secs Specimen Blood PERIPHERAL NERVE BLOCK (02/15/2017 11:22 AM)Only the most recent of2 resultswithin the time period is included. Narrative Michael Mo MD 02/15/2017 11:22 AM Procedure: Superficial cervical plexus Pre-Procedure Indication: Surgical Anesthesia Pre-Procedure Vitals HR:79 Blood pressure:192/70 SpO2:97 Procedure Laterality: Left Position: Supine Preparation: ChlorPrep and Sterile Drape/Gloves Technique: Anatomical landmark Type: Single-Shot Needle: StimuQuik Length: 50 mm Narrative Test Dose: Negative Blood aspirated: No Resistance on injection: Normal Pain on injection: No Paresthesia on injection: No Ease of block performance: Straight forward Start time: 02/15/2017 10:59 AM End time: 02/15/2017 11:00 AM Events: no other event Success: A full eval is pending Post-Procedure Vitals HR: 76 Blood pressure: 149/69 SpO2: 100 Performed by Anesthesiologist: KATERINE CHOU Fellow/Resident: SEHDEV, SONAMPREET Procedure: Deep cervical plexus Pre-Procedure Block Performed: Pre-op Indication: Surgical Anesthesia Procedure Laterality: Left Position: Supine Preparation: ChlorPrep and Sterile Drape/Gloves Technique: Anatomical landmark US used to identify nerve/real time visualization of needle placement & local anesthetic injection & US image captured: No Type: Single-Shot Needle: StimuQuik Length: 50 mm Narrative Test Dose: Negative Injection made incrementally with aspirations every 5 mL. Blood aspirated: No Resistance on injection: Normal Pain on injection: No Paresthesia on injection: No Ease of block performance: Straight forward Start time: 02/15/2017 11:00 AM End time: 02/15/2017 11:01 AM Events: no other event Success: A full eval is pending Performed by Anesthesiologist: KATERINE CHOU Fellow/Resident: MICHAEL MO TYPE AND SCREEN (BLOOD TYPE(ABORH) AND RBC ANTIBODY SCREEN) (02/15/2017 9:42 AM ) Component Value Range ABORH A Negative Specimen Expiration Date 2017-02-18 Antibody Screen Negative Specimen Blood MRI BRAIN W/WO CONTRAST ([id number]) (02/06/2017 4:04 PM) Impressions Impression: 1. Bilateral frontoparietal foci of subacute infarct. No evidence of hemorrhage. Narrative Procedure: MRI BRAIN W/WO CONTRAST ([id number]) Indication: Assess for stroke or TIA Technique: Multisequence, multiplanar MRI of the brain before and after the uneventful administration of 7.2 mL Gadavist IV contrast. Comparison: CT from 02/06/2017 Findings: There are scattered areas of diffusion restriction in the bilateral frontoparietal lobes. These areas demonstrate hyperintense T2/FLAIR signal and postcontrast enhancement. Bilateral areas of hyperintense T2 and FLAIR signal changes consistent with small vessel ischemic disease. There is a right parietal encephalomalacia change present. No evidence of hemorrhage. The ventricles, cortical sulci and basal cisterns are symmetric and appropriate. Normal brainstem and posterior fossa. The pituitary and suprasellar region are unremarkable. The major intracranial flow-voids are preserved. Normal orbits. The paranasal sinuses and mastoid air cells are clear. Normal bone marrow signal. Procedure Note Rohit, Incoming Imaging Results - MonFebruary 06, 2017 5:21 PM CDT Procedure: MRI BRAIN W/WO CONTRAST ([id number]) Indication: Assess for stroke or TIA Technique: Multisequence, multiplanar MRI of the brain before and after the uneventful administration of 7.2 mL Gadavist IV contrast. Comparison: CT from 02/06/2017 Findings: There are scattered areas of diffusion restriction in the bilateral frontoparietal lobes. These areas demonstrate hyperintense T2/FLAIR signal and postcontrast enhancement. Bilateral areas of hyperintense T2 and FLAIR signal changes consistent with small vessel ischemic disease. There is a right parietal encephalomalacia change present. No evidence of hemorrhage. The ventricles, cortical sulci and basal cisterns are symmetric and appropriate. Normal brainstem and posterior fossa. The pituitary and suprasellar region are unremarkable. The major intracranial flow-voids are preserved. Normal orbits. The paranasal sinuses and mastoid air cells are clear. Normal bone marrow signal. IMPRESSION Impression: 1. Bilateral frontoparietal foci of subacute infarct. No evidence of hemorrhage. CHLORIDE (02/06/2017 2:47 PM) Component Value Range Chloride 97 95-107 mEq/L Specimen Blood SODIUM (02/06/2017 2:47 PM) Component Value Range Sodium 140 135-145 mEq/L Specimen Blood CO2 (02/06/2017 2:47 PM) Component Value Range CO2 29 22-29 mEq/L Anion Gap 14 <17 mEq/L Specimen Blood POTASSIUM (02/06/2017 2:47 PM) Component Value Range Potassium 4.3 3.5-5.0 mEq/L Specimen Blood PTT (PARTIAL THROMBOPLASTIN TIME) (02/06/2017 2:47 PM) Component Value Range PTT 23 22-31 secs Specimen Blood PT/INR (PROTHROMBIN TIME/INR) VENOUS (02/06/2017 2:47 PM) Component Value Range PT (Prothrombin Time) 11 9-12 secs INR 1.0 <4.0 Specimen Blood HEMOGLOBIN A1C (02/06/2017 1:18 PM) Component Value Range Hemoglobin A1c 5.9Comment: 4.8-6.0 % Glycemic Control Guidelines: Non-diabetic <6% Goal <7% Therapeutic Action >8% Estimated Average Glucose 123Comment: mg/dL The estimated average glucose (eAG) calculated from the HbA1c changed on 21/05.See Laboratory Bulletins in the Department of Pathology Laboratory Services Handbook for a full discussion.Not e that the new calculated glucose will now be lower.The A1c result is unchanged. Specimen Whole Blood VASC COMMON FEMORAL ARTERY WAVEFORMS (02/06/2017 10:18 AM) Component Value Range VASC RIGHT PAI GOW MANAGER DIST PSV 225 cm/sec VASC RIGHT PAI GOW MANAGER DIST PEDV 0 cm/sec VASC RIGHT POPLITEAL BK PSV 101 cm/sec VASC RIGHT POPLITEAL BK PEDV 0 cm/sec VASC RIGHT PHYSICAL DAMAGE APPRAISER DIST PSV 52 cm/sec VASC RIGHT PHYSICAL DAMAGE APPRAISER DIST PEDV 0 cm/sec VASC LEFT PAI GOW MANAGER DIST PSV 185 cm/sec VASC LEFT PAI GOW MANAGER DIST PEDV 19 cm/sec VASC LEFT POPLITEAL BK PSV 54 cm/sec VASC LEFT POPLITEAL BK PEDV 9 cm/sec VASC LEFT PHYSICAL DAMAGE APPRAISER DIST PSV 31 cm/sec VASC LEFT PHYSICAL DAMAGE APPRAISER DIST PEDV 10 cm/sec VASC CAROTID DUPLEX SCAN (BILATERAL) (02/06/2017 10:18 AM) Component Value Range [facility] VASC RIGHT CCA PROX PSV 0 cm/sec [facility] VASC RIGHT CCA PROX PEDV 0 cm/sec [facility] VASC RIGHT CCA MID PSV 0 cm/sec [facility] VASC RIGHT CCA MID PEDV 0 cm/sec [facility] VASC RIGHT CCA DIST PSV 0 cm/sec [facility] VASC RIGHT CCA DIST PEDV 0 cm/sec [facility] VASC RIGHT ICA PROX PSV 0 cm/sec [facility] VASC RIGHT ICA PROX PEDV 0 cm/sec [facility] VASC RIGHT ICA MID PSV 0 cm/sec [facility] VASC RIGHT ICA MID PEDV 0 cm/sec [facility] VASC RIGHT ICA DIST PSV 0 cm/sec [facility] VASC RIGHT ICA DIST PEDV 0 cm/sec [facility] VASC RIGHT ECA PSV 56 cm/sec [facility] VASC RIGHT ECA PEDV 12 cm/sec [facility] VASC RIGHT VERTEBRAL PSV 80 cm/sec [facility] VASC RIGHT VERTEBRAL PEDV 21 cm/sec [facility] VASC LEFT CCA PROX PSV 58 cm/sec [facility] VASC LEFT CCA PROX PEDV 13 cm/sec [facility] VASC LEFT CCA DIST PSV 18 cm/sec [facility] VASC LEFT CCA DIST PEDV 9 cm/sec [facility] VASC LEFT ICA PROX PSV 718 cm/sec [facility] VASC LEFT ICA PROX PEDV 228 cm/sec [facility] VASC LEFT ICA MID PSV 152 cm/sec [facility] VASC LEFT ICA MID PEDV 42 cm/sec [facility] VASC LEFT ICA DIST PSV 66 cm/sec [facility] VASC LEFT ICA DIST PEDV 18 cm/sec [facility] VASC LEFT ECA PSV 0 cm/sec [facility] VASC LEFT ECA PEDV 0 cm/sec [facility] VASC LEFT VERTEBRAL PSV 141 cm/sec [facility] VASC LEFT VERTEBRAL PEDV 53 cm/sec [facility] VASC LEFT ICA/CCA 39.88 VASC AORTA DUPLEX (COMPLETE) (02/06/2017 10:18 AM) Component Value Range VASC ABDOMINAL PROX AORTA AP 2.2 cm VASC ABDOMINAL PROX AORTA TRANS 2.0 cm VASC ABDOMINAL MID AORTA AP 2.4 cm VASC ABDOMINAL MID AORTA TRANS 2.2 cm VASC ABDOMINAL DIST AORTA AP 1.6 cm VASC ABDOMINAL DIST AORTA TRANS 1.5 cm VASC ABDOMINAL RT COM ILIAC AP 0.8 cm VASC ABDOMINAL RT COM ILIAC TRANS 0.9 cm VASC ABDOMINAL LT COM ILIAC AP 0.9 cm VASC ABDOMINAL LT COM ILIAC TRANS 0.9 cm VASC LORY, PVR, TOE BP (02/06/2017 10:17 AM) Component Value Range VASC RIGHT ARM BP 150 mmHg VASC LEFT ARM BP 153 mmHg VASC RIGHT POSTERIOR TIBIAL 109 mmHg VASC LEFT POSTERIOR TIBIAL 72 mmHg VASC RIGHT ANTERIOR TIBIAL 106 mmHg VASC LEFT ANTERIOR TIBIAL 62 mmHg VASC RIGHT LORY 0.70 VASC LEFT LORY 0.47 VASC RIGHT TOE PRESSURE 59 mmHg VASC LEFT TOE PRESSURE 39 mmHg VASC RIGHT TBI 0.39 VASC LEFT TBI 0.25 CT ANGIO HEAD& NECK W/WO ([id number], [id number]) (02/06/2017 8:59 AM) Impressions Impression: 1. 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 No significant stenosis of the right common carotid artery with moderate to severe ostial stenosis of the internal carotid. 3. Mild left and mild to moderate right ostial stenosis of the vertebral arteries. Narrative Procedure: CT ANGIO HEAD & NECK W/WO ([id number], [id number]) Indication: Carotid stenosis evaluation. Bilateral carotid stenosis Exam: Axial CT angiogram of the neck and [place] [facility] [place] after the uneventful administration of 48 mL Isovue-370 IV contrast. Sagittal and coronal reformations were also provided for review. 3D images were created on an independent workstation to better evaluate potential vascular abnormalities. Comparison: None. Findings: - CTA Neck: There is classic aortic branching without significant ostial stenosis. There is occlusion of the right common carotid artery. The left common carotid artery is patent. There is ostial occlusion of the right internal carotid artery. There is greater than 70% stenosis at the left carotid bifurcation with ostial stenosis of the left external carotid. The right external carotid appears patent. The vertebral arteries originate from the subclavian arteries with mild left and mild to moderate right ostial stenosis. There is a focus of atherosclerotic calcification within the left vertebral artery. There is otherwise normal course and caliber of the cervical vertebral arteries. - CTA Head: The distal right internal carotid artery is occluded. Normal distal vertebral and basilar arteries. There is poor opacification of the right anterior cerebral and posterior communicating arteries. Flow is visualized primarily through the anterior communicating arteries with a diminutive right posterior communicating artery. No evidence of aneurysm or malformation. Procedure Note Rohit, Incoming Imaging Results - MonFebruary 06, 2017 11:38 AM CDT Procedure: CT ANGIO HEAD & NECK W/WO ([id number], [id number]) Indication: Carotid stenosis evaluation. Bilateral carotid stenosis Exam: Axial CT angiogram of the neck and [place] after the uneventful administration of 48 mL Isovue-370 IV contrast. Sagittal and coronal reformations were also provided for review. 3D images were created on an independent workstation to better evaluate potential vascular abnormalities. Comparison: None. Findings: - CTA Neck: There is classic aortic branching without significant ostial stenosis. There is occlusion of the right common carotid artery. The left common carotid artery is patent. There is ostial occlusion of the right internal carotid artery. There is greater than 70% stenosis at the left carotid bifurcation with ostial stenosis of the left external carotid. The right external carotid appears patent. The vertebral arteries originate from the subclavian arteries with mild left and mild to moderate right ostial stenosis. There is a focus of atherosclerotic calcification within the left vertebral artery. There is otherwise normal course and caliber of the cervical vertebral arteries. - CTA Head: The distal right internal carotid artery is occluded. Normal distal vertebral and basilar arteries. There is poor opacification of the right anterior cerebral and posterior communicating arteries. Flow is visualized primarily through the anterior communicating arteries with a diminutive right posterior communicating artery. No evidence of aneurysm or malformation. IMPRESSION Impression: 1. 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 No significant stenosis of the right common carotid artery with moderate to severe ostial stenosis of the internal carotid. 3. Mild left and mild to moderate right ostial stenosis of the vertebral arteries. CREATININE, POINT OF CARE (02/06/2017 8:26 AM) Component Value Range POC CREATININE 0.8 0.5-1.0 mg/dL POC CALCULATED GFR >60 60 mL/min/1.73 m2 Specimen Blood
[2017-02-16 21:37] LABS: Hematocrit 39.7 % (37.0-47.0); Hemoglobin 13.3 gm/dL (12.5-16.0); Mean Cell Volume 89.4 fl (78-100); Mean Corpuscular Hgb Conc 33.5 g/dl (32-36); Mean Platelet Volume 9.3 fl (6.0-9.5); Neutrophil # 12.9 K/mm3 (1.3-6.0); Neutrophil % 71.9 % (42-75.0); Platelet Count 300 K/mm3 (150-450); Red Blood Count 4.44 M/mm3 (4.2-5.4); Red Cell Distribution Width 11.9 % (11.5-14.0); White Blood Count 17.9 K/mm3 (4.0-10.5)
[2017-02-16 21:43] LABS: Anion Gap 10.2 mmol/L (6.8-13.8); BUN/Creatinine Ratio 21.7 (9.0-21.6); Carbon Dioxide 30.6 mmol/L (24-32.6); Estimated Creat Clear 58.5; Potassium 3.8 mmol/L (3.4-4.6)
--- NOTE | 2017-02-16 21:44 | ERNOTE ---
Medical Problem HPI - General Chief Complaint: Screening, Suture/Wound Time Seen by Provider: 02/16/17 20:51 Source: patient Exam Limitations: no limitations - Immun/Allergies/Home Medications Immunizations: IMMUNIZATION HX Immunizations Up to Date Yes History of Influenza Vaccine Yes Hx Pneumococcal Vaccination Yes Allergies/Adverse Reactions: Allergies shrimp Allergy (Verified 02/16/17 20:30) Home Medications: HOME MEDICATIONS Atorvastatin Calcium [Lipitor] 40 mg PO DAILY 02/04/17 [Last Taken 02/04/17 12: 00] Lisinopril/Hydrochlorothiazide [Zestoretic 10-12.5 mg Tablet] 1 each PO DAILY [Last Taken 02/04/17 12:00] [place]-3 Fatty Acids/Fish Oil [Fish Oil 1,000 mg Capsule] 1 each PO DAILY [Last Taken 01/27/17] Cholecalciferol (Vitamin D3) [Vitamin D3] 1,000 unit PO DAILY 02/05/17 [Last Taken Unknown] Clopidogrel Bisulfate [Plavix] 75 mg PO DAILY #60 tablet 02/05/17 [Last Taken 75] Cyanocobalamin (Vitamin B-12) [Vitamin B-12] 500 mcg PO DAILY 02/05/17 [Last Taken Unknown] Folic Acid 0.4 mg PO DAILY 02/05/17 [Last Taken Unknown] Aspirin 81 mg PO 02/16/17 [Last Taken Unknown] HYDROcodone/ACETAMINOPHEN [[place] 5-325] 1 tab PO Q4H PRN 02/16/17 [Last Taken Unknown] - History of Present History Narrative: Pt had a left CEA yesterday and her wound is bleeding. She called vascular at [facility] and they encouraged her to come to the ED Timing: getting worse Severity: moderate Modifying Factors - (Worsens): Present: movement Review of Systems - Review of Systems Constitutional: Present: fatigue. Absent: fever, chills EYE: Absent: vision changes ENT: Present: other - denies any difficulty swallowing. Absent: sore throat, throat swelling Respiratory: Absent: shortness of breath Cardiology: Present: no symptoms reported Gastrointestinal/Abdominal: Present: no symptoms reported Genitourinary: Present: no symptoms reported Musculoskeletal: Present: no symptoms reported Skin: Absent: rash Neurological: Absent: dizziness/light-headedness, numbness, tingling Hematologic/Lymphatic: Absent: easy bruising, easy bleeding Psych: Present: no symptoms reported - Patient's Past Medical History Patient History - Medical: Anemia, Arthritis, Other Patient History - Cardiac/Respiratory: Hypertension, Hyperlipidemia Patient History - Cancer: No Hx of Cancer Patient History - Surgical Procedures: Total Knee Replacement, Other - carotid endarterectomy Patient History - Other: None LMP (females 10-50): Menopausal - Family History Father Family History - Medical: , Diabetes Type 2 Family History - Cardiac/Respiratory: CVA/Stroke, Hypertension Mother Family History - Medical: Alzheimer's Disease, Arthritis - Social History Living Situations: home Abuse History: No History of abuse Psych History: No pertinent hx Smoking Status: Former smoker Alcohol Use: none Drug Use: none - Immunizations Immunizations Up to Date: Yes Hx Pneumococcal Vaccination: Yes History of Influenza Vaccine: Yes Physical Exam - Physical Exam General Appearance: Present: wd/wn, alert, no apparent distress Eye Exam: Normal inspection: bilateral, PERRL: bilateral, EOMI: bilateral Ears, Nose, Throat: Absent: pharyngeal erythema, pharyngeal swelling Neck: Present: tender lateral - mild on left appropriate for post op, other - gauze dressing covered with tegaderm, gauze is soaked and blood pooling in the tegaderm, leaking out in small amounts. 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 Results and Orders: Laboratory Tests 02/16/17 02/16/17 21:20 21:20 WBC 17.9 H Hgb 13.3 Hct 39.7 Plt Count 300 Sodium 137 Potassium 3.8 Chloride 100 Carbon Dioxide 30.6 Anion Gap 10.2 BUN 20 Creatinine 0.92 Est GFR (Non-Af Amer) 65 BUN/Creatinine Ratio 21.7 H Random Glucose 142 H Calcium 9.0 - Vital Signs Patient's Vital Signs:: I have reviewed the patient's vital signs. Vital Signs: Vital Signs 02/16/17 02/16/17 20:22 20:58 Temperature 37.1 C Pulse Rate 80 75 Respiratory 24 H 18 Rate Blood Pressure 164/55 165/57 O2 Sat by Pulse 95 94 Oximetry - CT/Ultrasound CT/Ultrasound Narrative: CTA neck. Occlusion of the proximal right common carotid A. hemorrhage and several locules of gas are seen adjacent to the distal left common carotid A. and carotid bulb. No active extravasation. 6 x 12 mm nodule within the left thyroid lobe CTA head. high-grade stenoses of the A1 segment of the right anterior cerebral A. Other arteries patient - Progress/Reassessment Chief Complaint: Screening, Suture/Wound Progress:: Unchanged Progress Note-Subjective: 02/16/17 23:22 21:05 spoke with vascular at [facility], Dr. Jono Osuna. He requested a CTA of the neck and to send the films up there for them to read tonight. CTA was done and images were pushed to the [place]. Called back and spoke with the vascular fellow, Dr. Nic Higgins. He was just getting out of surgery and will look at the images and call me back. 02/17/17 00:50 Received call back from Dr. Higgins, he states that he and Dr. Osuna see an abnormality on the CT scan that should be handled by the surgeon who did her surgery. Suggested the patient be transferred to [facility] and held in the ED until the surgeon can see her tomorrow. Discussed that plan with the patient, she reluctantly agreed. Spoke with Dr. Hilario in the ED at [facility] hospital, she agree to accept the patient in transfer. Transportation arranged. 02/17/17 02:27 Removed the soaked bandage from the surgical wound. Surgical wound appears in good condition and well approximated. Dark blood continues to bleed out of the inferior end of the surgical wound. The area was carefully cleaned with sterile water on sterile 4x4's. An ABD was trimmed to length and placed over the surgical wound and a tegaderm bandage was placed over the ABD. Pt tolerated well. 02/17/17 02:31 Departure - Departure Clinical Impression: Post-op bleeding Qualifiers: Surgical complication system/body Area: circulatory system Procedure type: other circulatory Qualified Code(s): I97.618 - Postprocedural hemorrhage of a circulatory system organ or structure following other circulatory system procedure Disposition: [facility] Condition: Fair Referrals: Maria G Garcia, [employer] [Primary Care Provider] -
[2017-02-17 03:38] VITALS: BP 127/44
== END 2017-02-17 04:05 | disposition short-term general hospital (02) ==
LOC: ER 20:20
DX: I97.618 Postprocedural hemorrhage of a circulatory system organ or structure following other circulatory system procedure (principal)